=== PATIENT | female | born 1995 | race Caucasian/White ===

== ENCOUNTER 2021-10-03 10:38 | Emergency (ER) | payer BC, SELFPAY ==
[2021-10-03 11:20] VITALS: BP 150/76; PULSE 102; RESP 20; TEMP 37.4; O2SAT 96; BMI 47.1
--- NOTE | 2021-10-03 11:38 | HMH.EDUTC ---
[facility] Disposition Clinical Impression: Viral syndrome, Exposure to COVID-19 virus Otitis media Qualifiers: Otitis media type: suppurative Chronicity: acute Laterality: bilateral Recurrence: non-recurrent Spontaneous tympanic membrane rupture: without spontaneous rupture Qualified Code(s): H66.003 - Acute suppurative otitis media without spontaneous rupture of ear drum, bilateral Disposition: Home, Self-Care Condition on Discharge: Good Instructions: Middle Ear Infection, DI for COVID-19 (Suspected or Confirmed ), Preventing the Spread of Coronavirus Discharge Instructions Additional Instructions: Drink plenty of fluids. Take tylenol or ibuprofen for pain or fever. Take the medications as directed. Follow up with your regular doctor. GO TO THE ER FOR ANY WORSENING SYMPTOMS Quarantine until you know the results of your covid-19 test. If it is positive, the health department should call you and give you further instructions about your length of Quarantine and other things. Notify your school or workplace of your results and follow their instructions regarding return to work/school. If this does not return agent to be covid-19, then I highly encourage you to get vaccinated against covid-19 once you are well from this episode. Prescriptions: Brompheniramine/Pseudoephed/Dm [Bromfed Dm Cough Syrup] 5 ml PO Q6HP PRN #240 ml PRN Reason: Cough Transmission Status: Received by [facility] methylPREDNISolone [Medrol] 4 mg PO DIRECTED 6 Days #21 packet Transmission Status: Received by [facility] Cefdinir [Omnicef 300mg Capsule] 300 mg PO BID #20 cap Transmission Status: Received by [facility] Referrals: Candie Gray PA [Primary Care Provider] - Forms: Work/School Release Time of Disposition: 12:23 Medical Decision Making - Medical Records Medical records reviewed: No: I reviewed the patient's medical records. - Tan Inquiry Pt receiving controlled substance: No Vital Signs: 10/03/21 11:20 10/03/21 12:27 Temperature 99.4 F 99.4 F Temperature Source Oral Pulse Rate 102 H Pulse Rate [Right Brachial] 102 H Respiratory Rate 20 20 Blood Pressure 150/76 H Blood Pressure [Right Arm] 150/76 H Blood Pressure Mean [Right Arm] 100 Blood Pressure Source [Right Arm] Automatic Cuff Blood Pressure Position [Right Arm] Sitting 02 Sat by Pulse Oximetry 96 Oxygen Delivery Method Room Air - Lab Data Lab results reviewed: Yes: I reviewed the patient's lab results. Lab Results 10/03/21 12:03: Influenza Type A Ag Negative, Influenza Type B Ag Negative Orders (Tests/Meds): ORDERS Category Date Time Status Covid-19 Nasal PCR ([facility]) Routine Lab 10/03/21 11:39 Received [facility] HPI - General Stated complaint: rt ear pain, covid symptoms Time Seen by Provider: 10/03/21 11:38 - History of Present Illness Provider Complaint: She states that for the past 3 days she has had worsening right ear pain and pressure. She has a history of getting ear infections easily. Yesterday she started running a fever up to 102. She has a dry cough and body aches now also. - Related Data Home Medications Medication Instructions Recorded Confirmed venlafaxine 75 mg capsule,extended 75 mg PO QDAY 10/05/17 10/03/21 release 24 hr Omeprazole [Omeprazole 20mg 20 mg PO DAILY 10/03/21 10/03/21 Capsule] Previous Rx's Medication Instructions Recorded Brompheniramine/Pseudoephed/Dm 5 ml PO Q6HP PRN #240 ml 10/03/21 [Bromfed Dm Cough Syrup] Cefdinir [Omnicef 300mg Capsule] 300 mg PO BID #20 cap 10/03/21 methylPREDNISolone [Medrol] 4 mg PO DIRECTED 6 Days #21 10/03/21 packet Allergies Allergy/AdvReac Type Severity Reaction Status Date / Time Penicillins [PENICILLINS] Allergy Mild Verified 10/05/17 16:25 Sulfa (Sulfonamide Allergy Mild Verified 10/05/17 16:25 Antibiotics) [SULFA (SULFONAMIDE ANTIBIOTICS)]
[2021-10-03 12:03] LABS: UTC Influenza A Antigen Negative (Negative)
[2021-10-03 12:04] LABS: UTC Influenza B Antigen Negative (Negative)
[2021-10-03 12:27] VITALS: BP 150/76; PULSE 102; RESP 20; TEMP 37.4; O2SAT 96
== END 2021-10-03 12:29 | disposition home or self-care (01) ==
PROVIDERS: Emergency Provider Nurse Practitioner Family; PCP Physician Assistant
DX: U07.1 COVID-19 (principal); H66.003 Acute suppurative otitis media without spontaneous rupture of ear drum, bilateral
CPT/HCPCS: 87804; 99202; C9803; G0463; U0003; U0005

== ENCOUNTER 2024-03-03 09:37 | Outpatient (CLI) | payer BC, SELFPAY ==
[2024-03-03 11:42] LABS: HCG,Quantitative 205 mIU/ml (0-5.42)
[2024-03-04 09:15] LABS: Progesterone 15.8 ng/mL (.)
== END 2024-03-03 23:59 | disposition home or self-care (01) ==
PROVIDERS: PCP Physician Assistant; Visit Provider Obstetrics & Gynecology
DX: Z34.90 Encounter for supervision of normal pregnancy, unspecified, unspecified trimester (principal)
CPT/HCPCS: 36415; 84144; 84702

== ENCOUNTER 2024-03-24 12:04 | Outpatient (CLI) | payer BC, SELFPAY ==
[2024-03-24 14:23] LABS: HCG,Quantitative 5 mIU/ml (0-5.42)
== END 2024-03-24 23:59 | disposition home or self-care (01) ==
LOC: LAB 12:05
PROVIDERS: PCP Physician Assistant; Visit Provider Obstetrics & Gynecology
DX: O03.9 Complete or unspecified spontaneous abortion without complication (principal)
CPT/HCPCS: 36415; 84702

== ENCOUNTER 2024-07-10 12:41 | Emergency (ER) | payer BC, SELFPAY ==
[2024-07-10 13:00] VITALS: BP 150/80; PULSE 93; RESP 19; TEMP 37.2; O2SAT 100; BMI 46.7
--- NOTE | 2024-07-10 13:06 | EXP.UTC ---
Discharge Plan Disposition Patient Disposition: Home, Self-Care Condition: Good Prescriptions Prescriptions: New azithromycin [Zithromax Z-Mc] 250 mg tablet See Rx Instructions .ROUTE .COMPLEX 5 Days Qty: 6 0RF Rx Instructions: For 250 mg dose pack: take 500 mg today (day 1), then 250 mg for 4 days (days 2-5) benzonatate 100 mg capsule 100 mg PO TID PRN (Reason: cough) Qty: 30 0RF methylprednisolone [Medrol (Mc)] 4 mg tablets,dose pack See Rx Instructions .Route .COMPLEX 6 Days Qty: 21 0RF Rx Instructions: taper pack; No Action pantoprazole 40 mg tablet,delayed release (DR/EC) 40 mg PO DAILY Qty: 30 6RF venlafaxine 75 mg capsule,extended release 24hr 75 mg PO DAILY Rx Instructions: TAKE 1 CAPSULE ORALLY EVERY DAY FOR ANXIETY Referrals Follow up/Referrals: Nazanin Herr APRN [Primary Care Provider] - See instructions Activity Restrictions/Add. Instructions Additional Instructions/Restrictions: *Monitor Temp, Over the counter Motrin or Tylenol as directed/as needed Tylenol every 4 hours and Motrin every 6 hours (as long as your family doctor has told you that you can take it) for fever or pain. and straight to ER if unable to lower temp less than 101.0 after medication given *Warm salt water gargles may help to soothe the throat *Throat Lozenges? *Warm fluids like tea with honey may help to soothe the throat? *Sleep elevated *Humidifier/Vaporizer Your throat swab was sent for culture. Those results are typically sent to your primary care. Be sure to follow up in 2-3 days with your family doctor/primary care physician if no improvement so they can review those result and treat if necessary. If you don?t have a primary care doctor, I recommend you get one but in the mean time, you will have to return to a walk in clinic Follow up IMMEDIATELY for new or worsening symptoms or no Noticeable improvement over the next 48-72 hours. 911 for difficulty breathing or swallowing Clinical Impressions Clinical Impression: Sinusitis Qualifiers: Sinusitis location: unspecified location Chronicity: unspecified Qualified Code(s): J32.9 - Chronic sinusitis, unspecified Instructions Patient Instructions: Sinusitis, DI for Sinusitis Print Language Print Language: Kazakh Discharge ED Provider: Olimpia Lloyd [facility] [place] HPI General Stated complaint: headache, cough, sore throat Mode of Arrival: Ambulatory Source of Information: Patient Limitations: No Limitations Time Seen by Provider: 07/10/24 13:06 Description of Symptoms (Recalled from Triage Doc. by RN): PATIENT C/O SINUS PRESSURE, SORE THROAT AND COUGH X 2 DAYS HEENT Symptoms (Recalled from RN notes): Yes Resp Symptoms (Recalled from RN notes): Yes Skin Symptoms (Recalled from RN notes): No MS Symptoms (Recalled from RN notes): No Functional Status (Recalled from RN notes): WNL History of Present Illness Provider Complaint: Patient states that she has been having sinus congestion and pressure that has got worse over the last couple of days and now her throat is hurting also States the pressure behind her eyes is making her head hurt so she came in to get checked Related Data Home Medications ?Medication ?Instructions ?Recorded ?Confirmed venlafaxine 75 mg capsule,extended 75 mg PO DAILY 07/10/24 07/10/24 release 24 hr Previous Rx's ?Medication ?Instructions ?Recorded pantoprazole 40 mg tablet,delayed 40 mg PO DAILY #30 tabs 03/03/24 release azithromycin 250 mg tablet See Rx Instructions PO .COMPLEX 5 07/10/24 (Zithromax Z-Mc) days #6 tabs benzonatate 100 mg capsule 100 mg PO TID PRN cough #30 caps 07/10/24 methylprednisolone 4 mg tablets in See Rx Instructions .Route 07/10/24 a dose pack (Medrol (Mc)) .COMPLEX 6 days #21 tabs Allergies Allergy/AdvReac Type Severity Reaction Status Date / Time Penicillins [PENICILLINS] Allergy Mild Rash Verified 07/10/24 13:05 Sulfa (Sulfonamide Allergy Mild Rash Verified 07/10/24 13:05 Antibiotics) [SULFA (SULFONAMIDE ANTIBIOTICS)] Worker's Comp Is this a Worker's Comp case?: No [facility] Disclaimer: The information contained in this section may have been updated after the patient was seen, as this information can be updated by other users. 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 Decreased libido Anxiety GERD (gastroesophageal reflux disease) Surgical History No significant past surgical history Family History Mother Diabetes Social History Smoking Status: Never smoker alcohol intake: current alcohol intake frequency: a few times a month substance use type: denies use current occupational status: employed Travel in the last 8 weeks: None ROS Obtained: Yes All systems reviewed & no additional complaints except as documented and Yes Systems reviewed as appropriate & no additional complaints except as documented Constitutional Constitutional: Reports system reviewed and no additional complaints, except as documented, Reports as per HPI and Reports headache(s) ENT Ears, Nose, Mouth, and Throat: Reports system reviewed and no additional complaints, except as documented, Reports as per HPI, Reports headache(s), Reports sinus pain, Reports sinus pressure and Reports sore throat Cardiovascular Cardiovascular: Reports system reviewed and no additional complaints, except as documented and Reports as per HPI Respiratory Respiratory: Reports system reviewed and no additional complaints, except as documented and Reports as per HPI Gastrointestinal Gastrointestingal: Reports system reviewed and no additional complaints, except as documented and as per HPI Neurologic Neurologic: Reports headache(s) Physical Exam General General appearance: alert and in no apparent distress ENT ENT exam: Present mucous membranes moist Expanded ENT Exam Nose exam: Present sinus tenderness Throat exam: Present tonsillar erythema; Absent tonsillar exudate Respiratory Respiratory exam: Present normal lung sounds bilaterally; Absent respiratory distress or wheezes Cardiovascular Cardiovascular exam: Present regular rate, normal rhythm and normal heart sounds Neurological Exam Neurological exam: Present alert, oriented X3 and normal gait Medical Decision Making Medical Records Screening: Per USPSTF and CDC recommendations, given the prevalence of disease in our region, it is our hospital?s policy to screen for HIV and viral Hepatitis for all patients aged 18 and over and those with ongoing risk factors. Tan Inquiry Pt receiving controlled substance: No Tan was queried for this patient: No Vital Signs: 07/10/24 13:00 Temperature 99.0 F Temperature Source Oral Pulse Rate [Left Brachial] 93 H Respiratory Rate 19 Blood Pressure [Left Arm] 150/80 H Blood Pressure Mean [Left Arm] 103 Blood Pressure Source [Left Arm] Automatic Cuff Blood Pressure Position [Left Arm] Sitting 02 Sat by Pulse Oximetry 100 Oxygen Delivery Method Room Air Lab Data Lab results reviewed: Yes I reviewed the patient's lab results.
[2024-07-10 13:15] LABS: UTC Strep Screen (Rapid) Negative (Negative)
[2024-07-10 13:19] VITALS: BP 150/80; PULSE 93; RESP 19; TEMP 37.2; O2SAT 100
== END 2024-07-10 13:21 | disposition home or self-care (01) ==
PROVIDERS: Emergency Provider Nurse Practitioner; PCP Nurse Practitioner Family
DX: J32.9 Chronic sinusitis, unspecified (principal)
CPT/HCPCS: 87880; 99213; G0381

== ENCOUNTER 2024-10-14 09:29 | Outpatient (CLI) | payer BC, SELFPAY ==
[2024-10-14 10:04] LABS: Basophils % 0.6 % (0.1-2.0); Eosinophils # 0.1 K/mm3 (0.0-0.4); Eosinophils % 1.3 % (0.1-12.0); Hematocrit 38.4 % (37.0-47.0); Hemoglobin 12.4 g/dL (12.2-16.2); Lymphocytes # 2.5 K/mm3 (0.7-4.5); Lymphocytes % 37.4 % (10-50); Mean Corpuscular HGB Conc 32.3 g/dL (31.8-35.4); Mean Corpuscular Hemoglobin 28.4 pg (27.0-31.2); Mean Corpuscular Volume 88.1 fl (81-99); Mean Platelet Volume 10.7 fl (7.4-10.4); Monocytes # 0.5 K/mm3 (0.1-1.0); Monocytes % 7.9 % (1.7-9.3); Neutrophils # 3.6 K/mm3 (1.8-7.8); Neutrophils % 52.7 % (37.0-80.0); Platelet Count 278 K/mm3 (142-424); Red Blood Count 4.36 M/mm3 (4.20-5.40); Red Cell Distribution Width 12.9 % (11.5-17.5); White Blood Count 6.7 K/mm3 (4.8-10.8)
[2024-10-14 10:28] LABS: Alanine Aminotransferase 37 U/L (12-78); Albumin Level 4.1 g/dl (3.5-5.0); Albumin/Globulin Ratio 1.4 (1.1-1.8); Alkaline Phosphatase 67 U/L (38-126); Anion Gap 13.4 mEq/L (5-15); Aspartate Amino Transferase 34 U/L (14-36); Bilirubin,Total 0.2 mg/dl (0.2-1.3); Blood Urea Nitrogen 12 mg/dl (7-17); Calcium 8.9 mg/dl (8.4-10.2); Carbon Dioxide 25 mmol/L (22.0-30.0); Chloride 106 mmol/L (98-107); Cholesterol 171 mg/dl (140-200); Estimated Glomerular Filt Rate 98 ml/min (>60); GFR (African American) 118 ML/MIN (>60); Globulin 2.9 g/dL (1.3-3.2); Glucose 105 mg/dl (74-100); HDL Cholesterol 34 mg/dl (40-60); Magnesium 1.8 mg/dl (1.6-2.3); Potassium 4.4 mmoL/L (3.5-5.1); Sodium 140 mmol/L (136-145); Triglycerides 149 mg/dl (30-150); VLDL Cholesterol 30 mg/dL (0-40)
[2024-10-14 10:39] LABS: Direct LDL Cholesterol 51.78 mg/dL (100-129)
[2024-10-14 10:45] LABS: 25-OH Vitamin D, Total 34.9 ng/mL (30-100)
[2024-10-14 10:48] LABS: Hemoglobin A1C 5.5 % (4.0-6.0)
[2024-10-14 11:01] LABS: Thyroid Stimulating Hormone 2.17 uIU/mL (0.465-4.68)
[2024-10-15 07:17] LABS: Insulin Level Total 21.7 uIU/mL (2.6-24.9)
[2024-10-15 08:13] LABS: Estradiol 37.6 pg/mL (.); FSH 6.1 mIU/mL (.); Testosterone,Total 20 ng/dL (8-60)
[2024-10-17 07:29] LABS: Anti Mullerian Hormone (AMH) 2.21 ng/mL (.)
== END 2024-10-14 23:59 | disposition home or self-care (01) ==
LOC: LAB 09:30
PROVIDERS: PCP Nurse Practitioner Family; Visit Provider Obstetrics & Gynecology
DX: N92.6 Irregular menstruation, unspecified (principal); E66.01 Morbid (severe) obesity due to excess calories; Z68.41 Body mass index [BMI] 40.0-44.9, adult
CPT/HCPCS: 36415; 80053; 80061; 82306; 82397; 82670; 83001; 83036; 83525; 83735; 84403; 84443; 84550; 85025